=== PATIENT | female | born 1995 | race Caucasian/White ===

== ENCOUNTER 2017-11-18 09:13 | Emergency (ER) | payer SELFPAY ==
[2017-11-18 09:13] VITALS: BP 128/75; PULSE 83; RESP 18; TEMP 37; O2SAT 96; BMI 32.9
--- NOTE | 2017-11-18 09:30 | ED.VISSUMM ---
- ER Visit Summary Date of Service: 11/18/17 Chief Complaint: Sore throat History of Present Illness: The patient is a 22 F sore throat and mild productive cough since yesterday. No fevers. Mild pain with swallowing. No vomiting or diarrhea. Last menstrual period early October, she has abnormal cycles. No chest pains or shortness of breath. History of strep throat in the past. Is concerned of this today. Physical Examination: General: Alert and oriented ?3, no acute distress HEENT: Normocephalic, atraumatic. Moist mucosa membranes. TMs normal bilaterally. Mild posterior pharyngeal erythema, 1-2+ symmetric tonsils. Uvula midline. No exudates. Airway patent. Neck: supple, nontender. Cardiovascular: Regular rate and rhythm, no murmurs Respiratory: Normal breath sounds, symmetric, no distress Abdomen: Soft, nontender, nondistended Extremities: Nontender, no edema, pulses intact ?4 Neuro: no focal neurological deficits. Test Results: Rapid strep: Negative Emergency Department Course and Treatment: Patient nontoxic, vital signs stable. Rapid strep obtained negative. Culture pending. Discuss upper respiratory illness with her cough and sore throat symptoms. Continue oral hydration, Tylenol or Motrin as needed. Follow-up with PCP, return if any worsening symptoms. All questions were answered. Treatment Plan: [] Disposition: Discharge Impression: 1. Acute pharyngitis 2. upper respiratory infection This note was generated with [employer] dictation software. It may contain incorrect words, spelling, and punctuation that were not noted in review of the chart prior to signing ED Disposition - Plan for ED Patient: Disposition: Home or Assisted Living Chief Complaint: Sore Throat Diagnosis: Acute pharyngitis, Upper respiratory infection Instructions: ED Pharyngitis Viral Report Pending, ED URI Viral Referrals: Care Physician,No Primary [Primary Care Provider] - Tomasz Espinoza MD [STAFF PHYSICIAN] - 5-7 Days
--- NOTE | 2017-11-20 09:31 | ED.RN ---
LEFT A PHONE MESSAGE TO CALL ER. NEED TO FIND OUT WHICH PHARMACY PT WOULD LIKE ANTIBIOTIC CALLED TO. LAB RESULTED STEP +
== END 2017-11-18 10:36 | disposition home or self-care (01) ==
PROVIDERS: Emergency Provider Emergency Medicine
DX: J02.9 Acute pharyngitis, unspecified (principal); Z72.0 Tobacco use
CPT/HCPCS: 87077; 87880; 99282

== ENCOUNTER → 2018-08-01 13:51 | Outpatient (CLI) | payer MEDICAID, SELFPAY ==
[2018-08-01 15:47] LABS: Thyroid Stim Hormone (TSH) 1.16 uIU/mL (0.358-3.74)
[2018-08-01 15:56] LABS: Absolute Lymphocyte Count 2.11 X10^3/ul (0.83-4.51); Basophil# 0.02 X10^3/uL; Basophil% 0.2 % (0-1); Eosinophil# 0.13 X10^3/uL; Eosinophils% 1.3 % (0-5); Hematocrit 35.1 % (37-47); Hemoglobin 11.7 g/dl (12.0-15.0); Lymphocyte # 2.11 X10^3/ul (4.0); Lymphocyte % 21.3 % (19-41); Mean Corp Hgb Conc 33.3 g/gl (32-36); Mean Corpuscular Hgb 31.5 pg (27.0-32.0); Mean Corpuscular Volume 94.4 fL (81-99); Mean Platelet Vol. 10.4 fl (6.2-12.0); Monocyte% 6.1 % (0-10); Neutrophil # 7.02 X10^3/uL (2.7-7.7); Neutrophil % 70.9 % (47-70); Platelet Count 244 K/mm3 (150-450); RBC Distribution Width CV 12.7 % (11.6-14.6); RBC Distribution Width SD 43.6 fl (35.1-43.9); Red Blood Count 3.72 M/mm3 (4.2-5.4); White Blood Count 9.9 K/mm3 (4.4-11.0)
[2018-08-01 15:58] LABS: POSITIVE COUNT NO; POSITIVE DIFFERENTIAL NO; POSITIVE MORPHOLOGY NO
[2018-08-01 16:00] LABS: Color, Urine Yellow (Yellow); Glucose, Dipstick 50 mg/dl (Normal); Ketone-Dipstick Negative (Negative); Leukocyte Esterase-Dipstick Negative /ul (Negative); Nitrite-Dipstick Negative (Negative); Occult Blood-Urine 10 /ul (Negative); Protein-Dipstick Negative (Negative); Urine Bilirubin Dipstick Negative (Negative); Urine Clarity Clear (Clear); Urine Urobilinogen Normal (Normal)
[2018-08-01 16:16] LABS: Hemoglobin A1c 5.2 % (4.2-6.3)
[2018-08-01 16:21] LABS: Amphetamine Urine VISTA NEGATIVE (<1000 ng/mL); Barbiturate Urine VISTA NEGATIVE (< 200 ng/mL); Benzodiazepine Urine VISTA NEGATIVE (< 200 ng/mL); Cocaine Urine VISTA NEGATIVE (< 300 ng/mL); Ecstacy Urine VISTA NEGATIVE (< 500 ng/mL); Methadone Urine VISTA NEGATIVE (< 300 ng/mL); PCP Urine VISTA NEGATIVE (< 25 ng/mL); THC Urine VISTA NEGATIVE (< 50 ng/mL); Vista UDS pH Range 7
[2018-08-01 16:30] LABS: HIV - WCH Non-Reactive (Nonreactive); Rubella IgG 238.1 IU/mL; Vitamin D,25 Hydroxy 8.5 ng/mL (29.95-100.01)
[2018-08-01 20:10] LABS: Chlamydia Trachomatis by PCR Negative (Negative); Neisserai gonorrhoeae by PCR Negative (Negative); Probe Check PASS; Sample Adequacy Control PASS; Specimen Processing Control PASS
[2018-08-04 11:47] LABS: HEPATITIS B SURFACE AG Negative (Negative); Hep C Antibodies <0.1 s/co ratio (0.0-0.9)
[2018-08-06 15:59] LABS: HPV Reflexed? NOT INDICATED
[2018-08-08 02:01] LABS: Prenatal RPR NONREACTIVE (NONREACTIVE)
== END ==
PROVIDERS: Visit Provider Obstetrics & Gynecology
DX: Z12.4 Encounter for screening for malignant neoplasm of cervix (principal); Z11.3 Encounter for screening for infections with a predominantly sexual mode of transmission; Z32.01 Encounter for pregnancy test, result positive
CPT/HCPCS: 80307; 81002; 82306; 83036; 84443; 85025; 86703; 86762; 86803; 87340; 87491; 87591; 87624; 88175; G0145

== ENCOUNTER 2018-10-17 10:35 | Outpatient (CLI) | payer MEDICAID, SELFPAY ==
[2018-10-17 11:14] VITALS: BMI 34.9
[2018-10-18 09:31] LABS: Kleihauer-Betke Negative
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
== END 2018-10-17 15:20 | disposition home or self-care (01) ==
LOC: WPOUT 10:48 → WP 10:49
PROVIDERS: Referring Provider Obstetrics & Gynecology; Visit Provider Obstetrics & Gynecology
DX: O99.89 Other specified diseases and conditions complicating pregnancy, childbirth and the puerperium (principal); Z3A.22 22 weeks gestation of pregnancy
CPT/HCPCS: 59025; 59050; 85460; 85461; 99218; G0378

== ENCOUNTER → 2018-11-20 13:54 | Outpatient (CLI) | payer MEDICAID, SELFPAY ==
[2018-11-20 16:09] LABS: Hematocrit 34.1 % (37-47); Hemoglobin 11.2 g/dl (12.0-15.0); Mean Corp Hgb Conc 32.8 g/gl (32-36); Mean Corpuscular Hgb 32.2 pg (27.0-32.0); Platelet Count 227 K/mm3 (150-450); RBC Distribution Width CV 13.1 % (11.6-14.6); RBC Distribution Width SD 46.4 fl (35.1-43.9); Red Blood Count 3.48 M/mm3 (4.2-5.4); White Blood Count 11.1 K/mm3 (4.4-11.0)
[2018-11-20 16:15] LABS: Scan Indicated on CBC? Y/N NO
[2018-11-20 16:30] LABS: Glucose Challenge Gest 1H 50g 123 mg/dL (70-140)
[2018-11-20 16:46] LABS: Vitamin D,25 Hydroxy 8.5 ng/mL (29.95-100.01)
[2018-11-25 11:26] LABS: Vitamin D 1,25-Dihydroxy 79.5 pg/mL (19.9-79.3)
== END ==
PROVIDERS: Visit Provider Obstetrics & Gynecology
DX: O99.282 Endocrine, nutritional and metabolic diseases complicating pregnancy, second trimester (principal); E55.9 Vitamin D deficiency, unspecified; Z3A.00 Weeks of gestation of pregnancy not specified
CPT/HCPCS: 36415; 82306; 82652; 82950; 85027; 86850

== ENCOUNTER → 2019-01-20 15:12 | Outpatient (CLI) | payer MEDICAID, SELFPAY | PROVIDERS: Visit Provider Obstetrics & Gynecology | DX: Z36.85 Encounter for antenatal screening for Streptococcus B (principal) | CPT/HCPCS: 87077; 87081; 87186 ==

== ENCOUNTER 2019-02-18 01:31 | Inpatient (IN) | payer MEDICAID, SELFPAY ==
[2019-02-18 01:10] VITALS: BMI 39.9
[2019-02-18 01:28] LABS: ROM Internal Control Test YES-OK TO RESULT pt. (Internal QC)
[2019-02-18 01:29] LABS: ROM Patient Test POSITIVE (Negative)
[2019-02-18] MEDS: Lactated Ringers 1,000 ML 50 ML IV (01:40)
[2019-02-18 01:59] LABS: Absolute Lymphocyte Count 2.24 X10^3/ul (0.83-4.51); Absolute Neutrophil Count 7.9 X10^3/uL (2.0-7.7); Basophil# 0.02 X10^3/uL; Basophil% 0.2 % (0-1); Eosinophil# 0.13 X10^3/uL; Eosinophils% 1.1 % (0-5); Hematocrit 33.6 % (37-47); Hemoglobin 11.2 g/dl (12.0-15.0); Lymphocyte # 2.24 X10^3/ul (4.0); Lymphocyte % 19.6 % (19-41); Mean Corp Hgb Conc 33.3 g/gl (32-36); Mean Corpuscular Hgb 30.8 pg (27.0-32.0); Mean Corpuscular Volume 92.3 fL (81-99); Mean Platelet Vol. 9.7 fl (6.2-12.0); Monocyte# 1.08 X10^3/uL; Monocyte% 9.4 % (0-10); POSITIVE COUNT NO; POSITIVE DIFFERENTIAL NO; POSITIVE MORPHOLOGY NO; Platelet Count 267 K/mm3 (150-450); RBC Distribution Width CV 12.9 % (11.6-14.6); RBC Distribution Width SD 42.1 fl (35.1-43.9); Red Blood Count 3.64 M/mm3 (4.2-5.4); White Blood Count 11.5 K/mm3 (4.4-11.0)
[2019-02-18] MEDS: Oxytocin 30 units/NS 500 ml 30 UNITS/500 ML IV.SOLN IV (03:15)
[2019-02-18] MEDS: Nalbuphine 10 MG/ML Ampul IV (05:10)
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
[2019-02-18] MEDS: Oxytocin 30 units/NS 500 ml 30 UNITS/500 ML IV.SOLN 334 UNITS IV (09:20)
[2019-02-18] MEDS: Oxytocin 30 units/NS 500 ml 30 UNITS/500 ML IV.SOLN 167 UNITS IV (09:50)
[2019-02-18 12:35] VITALS: BP 122/56; PULSE 96; RESP 20; TEMP 36.2; O2SAT 96
[2019-02-18] MEDS: Acetaminophen 500 MG Tablet PO (14:00)
[2019-02-18 16:00] VITALS: BP 123/54; PULSE 92; TEMP 36.3
[2019-02-18 21:24] VITALS: BP 110/74; PULSE 91; RESP 18; TEMP 36.6
[2019-02-18] MEDS: Ibuprofen 600 MG Tablet PO (21:29)
[2019-02-19 00:54] VITALS: BP 117/72; PULSE 86; RESP 16; TEMP 36.2
[2019-02-19 04:46] VITALS: BP 117/64; PULSE 78; RESP 18; TEMP 36.1
[2019-02-19 06:39] LABS: Hematocrit 30.7 % (37-47); Mean Corp Hgb Conc 32.6 g/gl (32-36); Mean Corpuscular Hgb 30.5 pg (27.0-32.0); Mean Corpuscular Volume 93.6 fL (81-99); Mean Platelet Vol. 9.9 fl (6.2-12.0); Platelet Count 241 K/mm3 (150-450); RBC Distribution Width CV 13.3 % (11.6-14.6); RBC Distribution Width SD 43.8 fl (35.1-43.9); Red Blood Count 3.28 M/mm3 (4.2-5.4); Scan Indicated on CBC? Y/N NO; White Blood Count 12.9 K/mm3 (4.4-11.0)
[2019-02-19 08:09] VITALS: BP 111/71; PULSE 68; TEMP 36.5
--- NOTE | 2019-02-19 08:10 | PCM.OPRPT ---
Vaginal Delivery Maternal Presentation: Spontaneous Rupture of Membranes 39 5/7 wk EGA Method of Induction: Pitocin Medical Reason for Induction: - - SROM Amniotic Membrane Rupture Type: Spontaneous at home Rupture of Membrane time: 2902/18/19 Amniotic Fluid Description: Clear Final JUAN: 02/20/19 Final JUAN Source: US <20 weeks Gestational age: 39 Weeks and 5 Days Date of Procedure: 02/18/19 Pre-Operative Diagnosis: 39 5/7 wk Post-Operative Diagnosis: Same Surgery/ Procedure Performed: Spontaneous Vaginal Delivery Anesthesiologist: Denis Merritt CRNA Type of Anesthesia: Epidural Description of Procedure: 39 5/7 wk SROM Pitocin induction for labor. Epidural placed. Ruby placed. IUPC in place. Progressed to complete . FHR deceleration noted . To hands and knees and then returned to dorsal supine position. Pushing with FHR deceleration noted. of a nelson viable female. CAN times one. LES. OP and nares bulb suctioned. Shoulders delivered once maternal pushing again effective, with rotation of anterior shoulder Xiomy's maneuver and gentle lateral traction. Head at perineum only 19 sec. No true shoulder dystocia documented. Infant to maternal abdomen. Cord clamped times two and cut. FEMALE 3579 gm Ap 05/25 Routine cord blood collected for typing. PP exam: no lacerations requiring repair. Abrasion at R anterior labia Placenta delivered by spont expulsion , Expression. 3 v cord, normal appearing and intact with trailing membranes. EBL 350 cc Pt and tolerated procedure well. To recovery,s table condition Ray Aga and needle counts correct times two Presentation: Vertex, LES Placental Delivery Description: Spontaneous, Expressed Placenta Disposition: [facility] Cord Vessel Description: 3 Vessels Cord Entanglement: Around neck x 1, loose Estimated Blood Loss: 350 A gender: Female (1 minute): 9 (5 minute): 9 Episiotomy Description: None Laceration: None Medications given after delivery: IV Pitocin Complications: None
--- NOTE | 2019-02-19 08:22 | PCM.PN.OB ---
Subjective: PPD#1 Doing well. Would like to go home today as is missing her other child Baby is doing well. No concerns voiced. - Physical Exam General: Alert, Oriented x3, Cooperative, No apparent distress HEENT: Atraumatic Neck: Supple Abdomen: Soft - fundus firm NT at 1-2 cm inferior to umbilicus Psych/Mental Status: Normal Affect Vital Signs Temp Pulse Resp BP Pulse Ox 96.9 F L 78 18 117/64 96 02/19/19 04:46 02/19/19 04:46 02/19/19 04:46 02/19/19 04:46 02/18/19 12:35 Oxygen Delivery Method Room Air Weight: 98.9 kg Body Mass Index (BMI) 39.9 Intake and Output for Last 24 Hours 02/17/19 02/18/19 02/19/19 23:59 23:59 23:59 Intake Total 1752 / 1752 Output Total 900 / 900 Balance 852 / 852 Laboratory Tests Past 24 Hrs 02/18/19 02/19/19 14:35 06:10 WBC 12.9 H RBC 3.28 L Hgb 10.0 L Hct 30.7 L MCV 93.6 MCH 30.5 MCHC 32.6 RDW 13.3 RDW Differential 43.8 Plt Count 241 MPV 9.9 Screen NEGATIVE Baby's Blood Type A POSITIVE Baby's DONTE NEGATIVE Medical Necessity - Tobacco Use Smoking Status: Former smoker Assessment/Plan All Active Problems (Last Updated 08/26/17 @ 10:07 by Miriam Gilmore) 41 weeks gestation of (Acute) (spontaneous vaginal delivery) (Acute) PPD#1 39 5/7 wk SROM to Stable pp. Home today per pt request. GBS neg A Positive . Pt O negative. RhoGAM given. RTO in 6 wk for pp check, prn sooner.
[2019-02-19] MEDS: Ibuprofen 600 MG Tablet PO (08:24)
[2019-02-19] MEDS: Senna/Docusate Sodium 1 Tablet PO (08:25)
[2019-02-19 14:00] VITALS: BP 116/72; PULSE 72; TEMP 36.6
== END 2019-02-19 14:40 | disposition home or self-care (01) | DRG 560 ==
LOC: WPOUT 01:31 → WP 09:29
PROVIDERS: Obstetrics & Gynecology; Admitting Provider Obstetrics & Gynecology; Referring Provider Obstetrics & Gynecology; Visit Provider Obstetrics & Gynecology
DX: O76 Abnormality in fetal heart rate and rhythm complicating labor and delivery (principal); Z3A.39 39 weeks gestation of pregnancy; Z37.0 Single live birth; O42.02 Full-term premature rupture of membranes, onset of labor within 24 hours of rupture; O69.81X0 Labor and delivery complicated by cord around neck, without compression, not applicable or unspecified; Z87.891 Personal history of nicotine dependence; O99.824 Streptococcus B carrier state complicating childbirth; O71.82 Other specified trauma to perineum and vulva; O34.43 Maternal care for other abnormalities of cervix, third trimester
CPT/HCPCS: 59025; 59050; 84112; 85025; 85027; 85461; 86850; 86900; 90384; 99218; J7120; A4216; G0378; J2790

== ENCOUNTER 2019-06-29 05:49 | Emergency (ER) | payer MEDICAID, SELFPAY ==
[2019-06-29 05:51] VITALS: BP 137/81; PULSE 89; RESP 18; TEMP 36.6; O2SAT 98; BMI 35.7
--- NOTE | 2019-06-29 05:58 | ED.DEP ---
ED Disposition - Plan for ED Patient: Instructions: Contact Dermatitis Prescriptions: Prednisone [Deltasone] 40 mg PO DAILY #10 tablet Referrals: Kulwinder Guerra DO [NON CLINICAL AFFILIATE] -
--- NOTE | 2019-06-29 06:01 | ED.VISSUMM ---
- ER Visit Summary Date of Service: 06/29/19 Chief Complaint: Rash History of Present Illness: The patient is a 24 F presenting with rash. Patient states this started on . She noticed a rash to both her forearms right greater than left. She complains of itching. She has tried hydrocortisone cream at home. She states she has sensitive skin and may have touched chemicals at work. She does not wish to file Worker's Compensation. She denies any other new irritants, soaps, detergents, medications, foods, pets. She denies fever. Denies other complaints. Physical Examination: Vitals are stable. Patient is afebrile. Alert no acute distress. HEENT exam is unremarkable. Neck is supple. Lungs are clear and equal bilaterally. Heart is regular rate and rhythm. Extremities bilateral volar forearm maculopapular rash. No warmth or surrounding redness. No petechia or purpura. Normal pulses. Skin is warm and dry. No focal neurologic deficit. Remainder of exam is unremarkable. Emergency Department Course and Treatment: Patient was given prednisone. Advised to use Benadryl for itching. She is advised to follow-up with primary care physician. Advised return to ED for worsening complaints. Disposition: Discharge home Impression: Contact dermatitis This note was generated with [employer] dictation software. It may contain incorrect words, spelling, and punctuation that were not noted in review of the chart prior to signing ED Disposition - Plan for ED Patient: Instructions: Contact Dermatitis Prescriptions: Prednisone [Deltasone] 40 mg PO DAILY #10 tab Prescription Printed Referrals: Kulwinder Guerra DO [NON CLINICAL AFFILIATE] -
[2019-06-29] MEDS: predniSONE 20 MG Tablet 60 MG PO (06:08)
== END 2019-06-29 06:12 | disposition home or self-care (01) ==
PROVIDERS: Emergency Provider Emergency Medicine
DX: L25.9 Unspecified contact dermatitis, unspecified cause (principal); F32.9 Major depressive disorder, single episode, unspecified; Z72.0 Tobacco use
CPT/HCPCS: 99283

== ENCOUNTER 2019-07-21 10:49 | Emergency (ER) | payer MEDICAID, SELFPAY ==
[2019-07-21 10:51] VITALS: BP 139/84; PULSE 84; RESP 18; TEMP 36.4; O2SAT 98; BMI 31.1
--- NOTE | 2019-07-21 10:58 | ED.RN ---
CALLED [facility]. NO ANSWER. LEFT VOICE MESSAGE
--- NOTE | 2019-07-21 11:11 | ED.VIS.BACK ---
History of Present Illness Chief Complaint: Back Informant: Patient Onset: Yesterday Context: Sudden Onset - After fall down 2-3 steps yesterday at work Chronic pain exacerbated by: History of herniated disc documented on MRI 3 years ago Injury: Fall Timing: Continuous Quality: Dull, Aching Location: Lumbar, Left Leg Current Severity: Mild Maximum Severity: Moderate Worsened by: improves with: Movement, Bending, Lifting Relieved by: Nothing Associated Symptoms: - - There is no numbness, tingling, fever, abdominal pain, urinary symptoms, bowel or bladder dysfunction, saddle paresthesia or anesthesia. She reports pain from her left flank area and radiating to the left ankle. Narrative: Patient is a 24-year-old female with history of fall several years ago and documented herniated disc at outside facility. She states yesterday she slipped and fell on her back. She went down on her buttocks approximately 3 steps. There is no head trauma. There is no loss conscious. Denies neck pain. She denies paresthesia, anesthesia motors. She denies cardiac respiratory symptoms. She denies buckling of her knees going up or down steps. She denies foot drop. Prior similar symptoms: Yes, - - Years ago secondary to fall Recent Illness/Hospitalization: No - Past Medical History (1) History of herniated intervertebral disc Status: Acute Past Medical History - Allergies and Home Meds Allergies/Adverse Reactions: Allergies Sulfa (Sulfonamide Antibiotics) Allergy (Verified 07/21/19 10:58) Hives hives /unsure of reaction Primary Care Physician: Care Physician,No Primary [Primary Care Provider] - Prior records reviewed: No Surgical History: noncontributory Lives: With Family Smoking Status: Current every day smoker Alcohol: Rare Drugs: None Review of Systems General: Denies: Chills, Fever, Malaise, Sweats, Weight loss Cardiovascular: Denies: Chest pain, Palpitations Respiratory: Denies: Dyspnea, Cough, Dyspnea on exertion Gastrointestinal: Denies: Abdominal pain, Nausea, Vomiting, Diarrhea, Constipation, Melena, Hematochezia, -, - Genitourinary: Denies: Dysuria, Hematuria, Frequency Musculoskeletal: Reports: Extremity Pain - The pain is not in a radicular pattern or distribution. Denies: Myalgias, Arthralgias, Neck pain, Swelling Skin: Denies: Rash, Wounds Neurological: Denies: Headache, Weakness, Parasthesia, Numbness Hematologic: Denies: Easy bruising, Easy bleeding Allergy: Denies: Uticaria, Swelling of the mouth Physical Exam Vital Signs/Narrative: Vital Signs Temp Pulse Resp BP Pulse Ox 07/21/19 10:51 97.6 F L 84 18 139/84 H 98 Inital Vital Signs reviewed: Yes General: Well nourished, Obese Head: Normocephalic, Atraumatic Eyes: Perrl, EOMI. Negative for: Pale conjunctiva, Scleral icterus ENT: Moist mucous membranes Neck: Supple, Nontender, No lymphadenopathy, No JVD Abdomen: Soft, Nontender, Nondistended, Normal bowel sounds, No masses, - - Is no pain the patient of the pelvis. Back: Normal Inspection, Paraspinal Tenderness - Predominantly left side, Negative SLR - Right, Negative SLR - Left. Negative for: Nontender, Surgical Scar, Well-Healed, CVA tenderness Extremeties: Nontender, No edema, Symmetric Skin: Normal color, No rash, No Trauma. Negative for: Cyanosis, Diaphoresis, Jaundice Neuro: Alert, Oriented, Normal Strength, Normal Sensation, Normal DTR - 5/5 strength plantar dorsiflexion of the foot. EHL is intact bilaterally. There is no quadricep weakness., Normal Gait, Normal Reflexes - DTR 2+ patella and ankle with no clonus or Babinski sign. Reflexes: - - Documented in the neuro section Psychological: Normal affect, Normal Mood ED Disposition - Plan for ED Patient: Disposition: Home or Assisted Living Diagnosis: Contusion of lower back and pelvis, initial encounter, Strain of muscle, fascia and tendon of lower back, initial encounter Instructions: Back Sprain/Strain Referrals: Care Physician,No Primary [Primary Care Provider] - [facility] [GROUP OF PHYSICIANS] - 2 Days Additional Instructions: Apply ice 20 to 30 minutes per application 6-8 times a day. Take 4 ibuprofen tablets every 8 hours for the next 3 to 5 days.
[2019-07-21] MEDS: Ibuprofen 400 MG Tablet 800 MG PO (12:01)
== END 2019-07-21 12:24 | disposition home or self-care (01) ==
PROVIDERS: Emergency Provider Emergency Medicine
DX: S39.012A Strain of muscle, fascia and tendon of lower back, initial encounter (principal); W19.XXXA Unspecified fall, initial encounter; Y93.9 Activity, unspecified; Y92.9 Unspecified place or not applicable; F17.200 Nicotine dependence, unspecified, uncomplicated
CPT/HCPCS: 99283

== ENCOUNTER → 2019-08-26 14:55 | Outpatient (CLI) | payer MEDICAID, SELFPAY ==
[2019-08-26 18:02] LABS: Neisserai gonorrhoeae by PCR Negative (Negative); Probe Check PASS; Sample Adequacy Control PASS; Specimen Processing Control PASS; Trichomonas Vag DNA by PCR Negative (Negative)
[2019-08-26 19:19] LABS: Chlamydia Trachomatis by PCR POSITIVE (Negative)
== END ==
PROVIDERS: Visit Provider Obstetrics & Gynecology
DX: Z11.3 Encounter for screening for infections with a predominantly sexual mode of transmission (principal)
CPT/HCPCS: 87491; 87591; 87661

== ENCOUNTER → 2022-03-27 | Outpatient (CLI) | payer MEDICAID, SELFPAY ==
[2022-03-30 00:06] LABS: Chlamydia By Nucleic Acid AMP Negative (Negative)
[2022-03-30 08:37] LABS: Gonococcus By Nucleic Acid AMP Negative (Negative)
[2022-03-31 23:56] LABS: HPV Reflexed? NOT INDICATED
== END | disposition home or self-care (01) ==
LOC: WOBLAB 17:03
PROVIDERS: PCP Internal Medicine; Visit Provider Obstetrics & Gynecology
DX: Z12.4 Encounter for screening for malignant neoplasm of cervix (principal); Z11.3 Encounter for screening for infections with a predominantly sexual mode of transmission
CPT/HCPCS: 87491; 87591; 88175; G0145